=== PATIENT | male | born 1980 | race Caucasian/White ===

== ENCOUNTER 2016-11-23 06:08 | Observation (INO) | payer OTHER ==
[~2016-11-23] VITALS: Ht 170.2 cm; Wt 70.0 kg
[2016-11-23] MEDS ORDERED: SODIUM CHLORIDE 0.9% 1,000ML IVBOLUS ONE (06:30)
[2016-11-23] MEDS ORDERED: LORazepam 1MG TABLET PO ONE (07:00)
[2016-11-23 07:06] LABS: HEMATOCRIT 45.7 % (39.2-51.8); HEMOGLOBIN 15.5 g/dL (13.7-18.0)
[2016-11-23 07:17] LABS: BLOOD UREA NITROGEN 18 mg/dL (7-18)
[2016-11-23 07:20] LABS: ASPARTATE AMINO TRANSFERASE 36 U/L (15-37)
[2016-11-23 07:25] LABS: ACETAMINOPHEN < 2 mcg/mL (10-30)
[2016-11-23 07:52] LABS: DAU SCREEN DISCLAIMER
[2016-11-23] MEDS ORDERED: LORazepam 1MG TABLET ONE (18:21)
[2016-11-23] MEDS ORDERED: ZIPRASIDONE 20 MG INJ IM PRN (22:30)
[2016-11-23] MEDS ORDERED: DOCUSATE 100 MG CAPSULE PO PRN (22:30)
[2016-11-23] MEDS ORDERED: ZIPRASIDONE 20MG CAPSULE PO PRN (22:30)
[2016-11-23] MEDS ORDERED: ACETAMINOPHEN 325 MG TABLET PO PRN (22:30)
[2016-11-23 22:43] VITALS: BP 147/89
== END 2016-11-24 16:20 ==
LOC: ED 06:17 → EDIP 21:52 → 3E 22:37
PROVIDERS: ADMIT Family Medicine; ATTEND Family Medicine
DX: R45.851 Suicidal ideations (principal); R45.850 Homicidal ideations; F31.9 Bipolar disorder, unspecified; F41.1 Generalized anxiety disorder; F43.10 Post-traumatic stress disorder, unspecified; D72.829 Elevated white blood cell count, unspecified; F22 Delusional disorders
CPT/HCPCS: 36415; 80053; 80307; 80329; 81001; 85025; 87086; 99285; G0378; G0480